=== PATIENT | male | born 1995 | race Caucasian/White ===

== ENCOUNTER 2019-05-26 15:42 | Emergency (ER) | payer OTHER ==
[~2019-05-26] VITALS: Ht 144.8 cm; Wt 81.6 kg
[2019-05-26 16:24] VITALS: Ht 144.8 cm; Wt 81.6 kg
[2019-05-26 18:05] VITALS: BP 124/64
== END 2019-05-26 18:05 | disposition home or self-care (01) ==
LOC: ED 15:42
DX: J45.901 Unspecified asthma with (acute) exacerbation (principal); Z98.890 Other specified postprocedural states; Z88.2 Allergy status to sulfonamides
CPT/HCPCS: J1100

== ENCOUNTER 2020-03-31 15:01 | Emergency (ER) | payer OTHER, SELFPAY ==
[~2020-03-31] VITALS: Ht 144.8 cm; Wt 72.6 kg
[2020-03-31 15:03] VITALS: Ht 144.8 cm; Wt 72.6 kg
[2020-03-31 16:04] LABS: BASOPHIL % 0.5 % (0-2); PLATELET COUNT 188 x10^3mcL (130-400); RED CELL DISTRIBUTION WIDTH 13.5 % (11.5-14.5)
[2020-03-31 16:48] LABS: CALCIUM 8.1 mg/dL (8.5-10.1); CHLORIDE SERUM 106 mmol/L (98-107); CREATININE SERUM 0.7 mg/dL (0.7-1.3); GFR1 > 60 mL/min; GLUCOSE SERUM 94 mg/dL (74-106); POTASSIUM SERUM 3.8 mmol/L (3.5-5.1); SODIUM SERUM 140 mmol/L (136-145)
[2020-03-31 16:53] LABS: ALKALINE PHOSPHATASE 80 U/L (46-116); ALT/SGPT 76 U/L (16-63); AST/SGOT 32 U/L (15-37); BILIRUBIN TOTAL 0.9 mg/dL (0.20-1.00); LACTIC DEHYDROGENASE (LDH) 341 U/L (100-190); TOTAL PROTEIN, SERUM 7.5 g/dL (6.4-8.2)
[2020-03-31 20:17] VITALS: BP 144/76
== END 2020-03-31 20:17 | disposition home or self-care (01) ==
LOC: ED 15:01
PROVIDERS: Emergency Medicine
DX: R07.89 Other chest pain (principal); R05 Cough; R50.9 Fever, unspecified; Z20.828 Contact with and (suspected) exposure to other viral communicable diseases; J45.909 Unspecified asthma, uncomplicated
CPT/HCPCS: 83880; 85378; 87804; U0003-CS

== ENCOUNTER 2020-08-06 07:29 | Emergency (ER) | payer OTHER ==
[~2020-08-06] VITALS: Ht 154.9 cm; Wt 86.6 kg
[2020-08-06 07:37] VITALS: Ht 154.9 cm; Wt 86.6 kg
[2020-08-06 08:39] VITALS: BP 133/76
== END 2020-08-06 08:39 | disposition home or self-care (01) ==
LOC: ED 07:29
DX: H01.009 Unspecified blepharitis unspecified eye, unspecified eyelid (principal); H01.004 Unspecified blepharitis left upper eyelid; J45.909 Unspecified asthma, uncomplicated; Z88.2 Allergy status to sulfonamides